=== PATIENT | female | born 1990 | race Caucasian/White ===

== ENCOUNTER 2017-01-22 22:24 | Emergency (ER) ==
[2017-01-22 22:37] VITALS: TEMP 98.4; BMI 45.1
--- NOTE | 2017-01-22 22:56 | ED.PDOC ---
General ED Provider: Dr. JOE DE LEON Chief Complaint: Bite Stated Complaint: Patient comes to the Er with complaints of redness and warmth to the right medial aspct of the right ankle that started one day ago. Denies any drainage. Tired to use compressess. Not sure if she got bit by a spider. Time Seen by Physician: 22:45 Mode of Arrival: Walk-In Information Source: Patient Exam Limitations: No limitations Primary Care Provider: SHENG DUMONT Nursing and Triage Documentation Reviewed and Agree: Yes Skin Complaint Exam - Skin/Soft Tissue Complaint/Exam Onset/Duration: 2 days Symptoms Are: Still present Timing: Constant Initial Severity: Moderate Current Severity: Moderate Location: Right medial aspect of the right knee. Character: Reports: Swelling, Raised, Painful Aggravating: Reports: None Alleviating: Reports: None Associated Signs and Symptoms: Reports: Tenderness Related History: Reports: Insect bite/sting (supects but not sure. ). Denies: Similar episode, Recent trauma, Foreign body, Recent Med change, Prior MRSA/VRE , Recent inpatient Related Surgical History: Reports: None Recent Exposure to Others w/Similar Symptoms: No Skin Findings: Present: Fluctuant mass (measuring 3 cm with raise area. not able to express any puss with needle. ), Skin lesion Joint Tenderness Present: No Differential Diagnoses: Abscess Review of Systems - Review Of Systems Constitutional: Reports: No symptoms Eyes: Reports: No symptoms Ears, Nose, Mouth, Throat: Reports: No symptoms Respiratory: Reports: No symptoms Cardiac: Reports: No symptoms GI: Reports: No symptoms : Reports: No symptoms Musculoskeletal: Reports: No symptoms Skin: Reports: Lesions (right ankle.) Neurological: Reports: No symptoms Endocrine: Reports: No symptoms Hematologic/Lymphatic: Reports: No symptoms All Other Systems: Reviewed and Negative Past Medical History - Past Medical History Previously Healthy: Yes Endocrine: Reports: None Cardiovascular: Reports: None Respiratory: Reports: Asthma Hematological: Reports: None Gastrointestinal: Reports: None Genitourinary: Reports: None Neuro/Psych: Reports: Anxiety, Depression Musculoskeletal: Reports: None Cancer: Reports: None Last Menstrual Period: DEC 31 2016 - Surgical History General Surgical History: Reports: , Unknown - Family History Family History: Reports: Unknown - Social History Smoking Status: Current every day smoker, Light tobacco smoker Hx Substance Use: No Alcohol Screening: Occasionally - Immunizations Tetanus Shot up to Date: Yes Physical Exam - Physical Exam Appearance: Ill-appearing, Obese Ill-appearing: Mild Pain Distress: Moderate Eyes: Conjunctiva clear Neck: Supple Respiratory: Airway patent, Breath sounds clear, Breath sounds equal, Respirations nonlabored Cardiovascular: RRR, Pulses normal, No rub, No murmur GI/: Soft, Nontender, No masses, Bowel sounds normal, No Organomegaly Musculoskeletal: Normal strength, ROM intact, No edema, No calf tenderness Skin: Warm, Dry Neurological: Sensation intact, Motor intact, Alert, Oriented Psychiatric: Anxious Procedures - Incision and Drainage Site: Right medial aspect of Ankle Instrument Used: Needle Lidocaine Used: No Type of Drainage: Present: None Irrigated: No Progress: Tolerated well Critical Care Note - Critical Care Note Total Time (mins): 0 Course - Course Orders, Labs, Meds: Orders Category Date Time Status Ibuprofen [Motrin] MEDS 01/22/17 23:00 Discontinued 800 mg PO ONCE STA Sulfamethoxazole/Trimethoprim [Bactrim Ds 800/160 mg] MEDS 01/22/17 23:00 Discontinued 1 tab PO ONCE STA Medications Discontinued Medications Generic Name Dose Route Start Last Admin Trade Name Freq PRN Reason Stop Dose Admin Ibuprofen 800 mg 01/22/17 23:00 01/22/17 23:10 Motrin PO 01/22/17 23:01 800 mg ONCE STA Administration Trimethoprim/Sulfamethoxazole 1 tab 01/22/17 23:00 01/22/17 23:10 Bactrim Ds 800/160 Mg PO 01/22/17 23:01 1 tab ONCE STA Administration Vital Signs: Temp Pulse Resp BP Pulse Ox 01/22/17 23:35 78 20 142/92 H 97 01/22/17 22:25 98.4 F 92 H 18 142/91 H 98 Departure - Departure Time of Disposition: 22:54 Disposition: HOME SELF-CARE Discharge Problem: Insect bite of right ankle with local reaction Qualifiers: Encounter type: initial encounter Qualifier Code: (S90.561A) Insect bite ( nonvenomous), right ankle, initial encounter Instructions: Insect Bite or Sting (ED) Condition: Fair Pt referred to PMD for follow-up: Yes Additional Instructions: Take Medications as prescribed Follow up with PCP in 3 days Return if worse. Prescriptions: Ibuprofen [Motrin] 600 mg PO Q6H PRN #30 tablet PRN Reason: Analgesia Sulfamethoxazole/Trimethoprim [Bactrim Ds Tablet] 1 each PO BID #20 tablet Tramadol HCl [Ultram] 50 mg PO Q6H PRN #10 tablet PRN Reason: Severe Pain Allergies/Adverse Reactions: Allergies clarithromycin [From Biaxin] Adverse Reaction (Verified 01/25/17 09:25) Anaphylaxis erythromycin base [Erythromycin Base] Adverse Reaction (Verified 01/25/17 09:25) Anaphylaxis Home Medications: Ambulatory Orders Ibuprofen [Motrin] 600 mg PO Q6H PRN #30 tablet 01/22/17 Multivitamin [Multi-Vitamin Daily] 1 each PO DAILY 01/22/17 Sulfamethoxazole/Trimethoprim [Bactrim Ds Tablet] 1 each PO BID #20 tablet 01/22 Tramadol HCl [Ultram] 50 mg PO Q6H PRN #10 tablet 01/22/17 Cephalexin [Keflex] 750 mg PO 1-2XD #14 capsule 01/25/17 Disposition Discussed With: Patient
[2017-01-22] MEDS ORDERED: BACTRIM DS 800/160 MG PO STA (23:00)
[2017-01-22] MEDS ORDERED: MOTRIN PO STA (23:00)
[2017-01-22 23:42] VITALS: BP 142/92
== END 2017-01-22 23:40 | disposition home or self-care (01) ==
LOC: ED 22:24
DX: S90.561A Insect bite (nonvenomous), right ankle, initial encounter (principal); W57.XXXA Bitten or stung by nonvenomous insect and other nonvenomous arthropods, initial encounter; F17.210 Nicotine dependence, cigarettes, uncomplicated
CPT/HCPCS: 99282

== ENCOUNTER 2017-01-25 09:19 | Emergency (ER) ==
[2017-01-25 09:25] VITALS: BP 142/92; TEMP 96.8; BMI 45.1
--- NOTE | 2017-01-25 09:45 | ED.PDOC ---
General ED Provider: Dr. JESSICA DIETRICH Chief Complaint: Bite Stated Complaint: Bite on Left ankle painful Time Seen by Physician: 09:35 Mode of Arrival: Walk-In Information Source: Patient Exam Limitations: No limitations Primary Care Provider: SHENG DUMONT Nursing and Triage Documentation Reviewed and Agree: Yes Review of Systems - Review Of Systems Constitutional: Reports: No symptoms Eyes: Reports: No symptoms Skin: Reports: Other (Left ankle bite area increasing redness) All Other Systems: Reviewed and Negative Past Medical History - Past Medical History Previously Healthy: Yes Endocrine: Reports: None Cardiovascular: Reports: None Respiratory: Reports: Asthma Hematological: Reports: None Gastrointestinal: Reports: None Genitourinary: Reports: None Neuro/Psych: Reports: Anxiety, Depression Musculoskeletal: Reports: None Cancer: Reports: None Last Menstrual Period: 12/31/16 - Surgical History General Surgical History: Reports: , Unknown - Family History Family History: Reports: Unknown - Social History Smoking Status: Current every day smoker Hx Substance Use: No Alcohol Screening: None Physical Exam - Physical Exam Appearance: Well-appearing Respiratory: Airway patent, Respirations nonlabored Skin: Warm, Dry, Normal color (Except for L ankle erythema at site of probable spider bite) Critical Care Note - Critical Care Note Total Time (mins): 5 Course - Course Vital Signs: Temp Pulse Resp BP Pulse Ox 01/25/17 09:23 96.8 F L 117 H 16 142/92 H 96 Departure - Departure Time of Disposition: 09:43 Disposition: HOME SELF-CARE Discharge Problem: Spider bite Qualifiers: Encounter type: sequela Injury intent: accidental or unintentional Qualifier Code: (T63.301S) Toxic effect of unspecified spider venom, accidental ( unintentional), sequela Instructions: Insect Bite or Sting (ED) Condition: Good Pt referred to PMD for follow-up: Yes (Follow up as planned) Additional Instructions: Add antibiotic as prescribed; keep follow up appointment as planned on Saturday. Prescriptions: Cephalexin [Keflex] 750 mg PO 1-2XD #14 capsule Allergies/Adverse Reactions: Allergies clarithromycin [From Biaxin] Adverse Reaction (Verified 01/25/17 09:25) Anaphylaxis erythromycin base [Erythromycin Base] Adverse Reaction (Verified 01/25/17 09:25) Anaphylaxis Home Medications: Ambulatory Orders Ibuprofen [Motrin] 600 mg PO Q6H PRN #30 tablet 01/22/17 Multivitamin [Multi-Vitamin Daily] 1 each PO DAILY 01/22/17 Sulfamethoxazole/Trimethoprim [Bactrim Ds Tablet] 1 each PO BID #20 tablet 01/22 Tramadol HCl [Ultram] 50 mg PO Q6H PRN #10 tablet 01/22/17 Cephalexin [Keflex] 750 mg PO 1-2XD #14 capsule 01/25/17
== END 2017-01-25 09:57 | disposition home or self-care (01) ==
LOC: ED 09:19
DX: T63.301S Toxic effect of unspecified spider venom, accidental (unintentional), sequela (principal); F17.210 Nicotine dependence, cigarettes, uncomplicated
CPT/HCPCS: 99282

== ENCOUNTER 2017-04-22 10:41 | Outpatient (CLI) ==
[2017-04-22 10:59] LABS: URINE PREGNANCY INTERNAL QC INTERNAL QC VALID
== END 2017-04-22 10:42 | disposition home or self-care (01) ==
LOC: LAB 10:41
PROVIDERS: ATTEND Internal Medicine Endocrinology, Diabetes & Metabolism
DX: R51 Headache (principal); L68.0 Hirsutism; N92.6 Irregular menstruation, unspecified; R63.5 Abnormal weight gain
CPT/HCPCS: 81025

== ENCOUNTER 2017-04-23 07:59 | Outpatient (CLI) ==
[2017-04-23 09:18] LABS: ALBUMIN 3.6 g/dL (3.4-5.0); ALBUMIN/GLOBULIN RATIO 1.13; ANION GAP 13.4; BILIRUBIN,TOTAL 0.26 mg/dL (0.00-1.20); BUN/CREATININE RATIO 14.08; CALCIUM 9.5 mg/dL (8.2-10.2); CREATININE 0.71 mg/dL (0.60-1.30); POTASSIUM 4.4 mmol/L (3.5-5.10); TOTAL PROTEIN 6.8 g/dL (6.4-8.2)
[2017-04-24 06:10] LABS: PROLACTIN 5.7 ng/mL (4.8-23.3); TESTOSTERONE 48 ng/dL (8-48)
[2017-04-24 07:12] LABS: ESTRADIOL 56.7 pg/mL (.); FOLLICLE STIMULATING HORMONE 3.7 mIU/mL (.); LUTEINIZING HORMONE 8.3 mIU/mL (.)
[2017-04-26 09:26] LABS: FREE TESTOSTERONE 0.8 pg/mL (0.0-4.2); INSULIN-LIKE GROWTH FACTOR 1 240 ng/mL (93-342)
== END 2017-04-23 08:00 | disposition home or self-care (01) ==
LOC: LAB 07:59
PROVIDERS: ATTEND Internal Medicine Endocrinology, Diabetes & Metabolism
DX: R51 Headache (principal); L68.0 Hirsutism; N92.6 Irregular menstruation, unspecified; R63.5 Abnormal weight gain
CPT/HCPCS: 36415; 80053; 82306; 82533; 82607; 82626; 82670; 83001; 83002; 84146; 84305; 84402; 84403; 84439; 84443

== ENCOUNTER 2017-05-17 11:39 | Outpatient (CLI) ==
[2017-05-17 12:42] LABS: ALBUMIN 3.7 g/dL (3.4-5.0); ALBUMIN/GLOBULIN RATIO 1.06; ANION GAP 13.5; BILIRUBIN,TOTAL 0.28 mg/dL (0.00-1.20); BUN/CREATININE RATIO 16.45; CALCIUM 9.5 mg/dL (8.2-10.2); CREATININE 0.79 mg/dL (0.60-1.30); POTASSIUM 4.5 mmol/L (3.5-5.10); TOTAL PROTEIN 7.2 g/dL (6.4-8.2)
== END 2017-05-17 11:40 | disposition home or self-care (01) ==
LOC: LAB 11:39
PROVIDERS: ATTEND Internal Medicine Endocrinology, Diabetes & Metabolism
DX: R51 Headache (principal); L68.0 Hirsutism; N92.6 Irregular menstruation, unspecified; R63.5 Abnormal weight gain
CPT/HCPCS: 36415; 80053

== ENCOUNTER 2017-07-25 11:42 | Outpatient (CLI) ==
[2017-07-25 12:41] LABS: ALBUMIN 3.3 g/dL (3.4-5.0); ALBUMIN/GLOBULIN RATIO 0.92; ANION GAP 13.7; BILIRUBIN,TOTAL 0.21 mg/dL (0.00-1.20); BUN/CREATININE RATIO 10.25; CALCIUM 9.4 mg/dL (8.2-10.2); CREATININE 0.78 mg/dL (0.60-1.30); POTASSIUM 3.7 mmol/L (3.5-5.10); TOTAL PROTEIN 6.9 g/dL (6.4-8.2)
== END 2017-07-25 11:43 | disposition home or self-care (01) ==
LOC: LAB 11:42
PROVIDERS: ATTEND Internal Medicine Endocrinology, Diabetes & Metabolism
DX: R51 Headache (principal); L68.0 Hirsutism; N92.6 Irregular menstruation, unspecified; R63.5 Abnormal weight gain
CPT/HCPCS: 36415; 80053; 84439; 84443

== ENCOUNTER 2017-10-01 09:43 | Emergency (ER) ==
[2017-10-01 09:51] VITALS: BP 142/88; TEMP 97.9; BMI 45.3
[2017-10-01 10:16] LABS: BILIRUBIN,URINE Negative (NEGATIVE); KETONES,URINE 3+ (NEGATIVE); LEUKOCYTE ESTERASE ,URINE 1+ (NEGATIVE); NITRITE,URINE Negative (NEGATIVE); PROTEIN,URINE Negative (NEGATIVE); URINE, BLOOD 2+ (NEGATIVE)
[2017-10-01 10:20] LABS: ADD URINE MICROSCOPIC YES
--- NOTE | 2017-10-01 10:29 | ED.PDOC ---
General ED Provider: Dr. 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 [ End ]97.9 86 20 98% 142/88 04/27. asthma depr anx uti csx1. lmp . presently taking augmentin and flagyl. [ End ] Time Seen by Physician: 10:27 Mode of Arrival: Walk-In Information Source: Patient Exam Limitations: No limitations Primary Care Provider: SHENG DUMONT Nursing and Triage Documentation Reviewed and Agree: No Review of Systems - Review Of Systems Constitutional: Reports: Malaise Eyes: Reports: No symptoms Ears, Nose, Mouth, Throat: Reports: No symptoms Respiratory: Reports: No symptoms Cardiac: Reports: No symptoms GI: Reports: Abdominal pain : Reports: Burning, Dysuria, Frequency, Hematuria, Pain, Urgency, Other ( ) Musculoskeletal: Reports: No symptoms Skin: Reports: No symptoms Neurological: Reports: No symptoms Endocrine: Reports: No symptoms Hematologic/Lymphatic: Reports: No symptoms All Other Systems: Other Past Medical History - Past Medical History Previously Healthy: Yes Endocrine: Reports: None Cardiovascular: Reports: None Respiratory: Reports: Asthma Hematological: Reports: None Gastrointestinal: Reports: None Genitourinary: Reports: UTI Neuro/Psych: Reports: Anxiety, Depression Musculoskeletal: Reports: None Cancer: Reports: None Last Menstrual Period: aug 12, 2017 - Surgical History General Surgical History: Reports: (x1), Unknown - Family History Family History: Reports: Unknown - Social History Smoking Status: Current every day smoker, Light tobacco smoker Hx Substance Use: No Alcohol Screening: None Physical Exam - Physical Exam Appearance: Well-appearing, Obese Pain Distress: Mild Eyes: YVONNE, EOMI, Conjunctiva clear ENT: Ears normal, Nose normal, Oropharynx normal Neck: Supple Respiratory: Airway patent, Breath sounds clear, Breath sounds equal, Respirations nonlabored Cardiovascular: RRR, Pulses normal, No rub, No murmur GI/: Soft, No masses, Bowel sounds normal, No Organomegaly, Tender Musculoskeletal: Normal strength, ROM intact, No edema, No calf tenderness Skin: Warm, Dry, Normal color Neurological: Sensation intact, Motor intact, Reflexes intact, Cranial nerves intact, Alert, Oriented Psychiatric: Affect appropriate, Mood appropriate Interpretation - Radiology Interpretation Radiology Interpretation By: Radiologist Radiology Results: Positive Exam Interpreted: Other ([id number] 6 days possible small subchorionic bleed single live iup) Critical Care Note - Critical Care Note Total Time (mins): 0 Course - Course Orders, Labs, Meds: Lab Review 10/01/17 10/01/17 10:05 10:34 Urine Color Yellow Urine Clarity Clear Urine pH 6.0 Ur Specific [place] 1.020 Urine Protein Negative Urine Glucose (UA) Negative Urine Ketones 3+ Urine Blood 2+ Urine Nitrite Negative Urine Bilirubin Negative Urine Urobilinogen 0.2 Ur Leukocyte Esterase 1+ Urine Microscopic RBC 5-10 Urine Microscopic WBC 0-2 Ur Squamous Epith Cells 5-10 Urine Test Positive Orders Category Date Time Status HCG,QUANTITATIVE Stat LAB 10/01/17 10:25 Ordered URINALYSIS C & S IF INDICATED Stat LAB 10/01/17 10:05 Completed URINE CULTURE Stat LAB 10/01/17 10:40 Ordered URINE Stat LAB 10/01/17 10:34 Completed ULTRASOUND OB/TV [U/S OB/TV] Stat RADS 10/01/17 10:36 Completed Vital Signs: Temp Pulse Resp BP Pulse Ox 10/01/17 09:43 97.9 F 86 20 142/88 H 98 Departure - Departure Time of Disposition: 12:19 Disposition: HOME SELF-CARE Discharge Problem: Bleeding from vagina UTI (urinary tract infection) Qualifiers: Urinary tract infection type: acute cystitis Hematuria presence: with hematuria Qualified Code(s): N30.01 - Acute cystitis with hematuria UTI (urinary tract infection) during Qualifiers: Trimester: first trimester Qualified Code(s): O23.41 - Unspecified infection of urinary tract in , first trimester Instructions: How to Stop Smoking (ED), Urinary Tract Infection in Women (ED), Urinary Tract Infection in (ED) Condition: Good Pt referred to PMD for follow-up: Yes Additional Instructions: increase fluids urine should be almost colorless call OB about urine culture(done in ER today) NOTE no change in medication discuss antibiotics with [employer] TUTOR Tylenol only for pain\continue antibiotics until culture results Allergies/Adverse Reactions: Allergies clarithromycin [From Biaxin] Adverse Reaction (Verified 10/01/17 09:53) Anaphylaxis erythromycin base [Erythromycin Base] Adverse Reaction (Verified 10/01/17 09:53) Anaphylaxis Home Medications: Ambulatory Orders Amoxicillin/Potassium Clav [Augmentin 875-125 mg Tab] 1 tab PO Q12HR 10/01/17 Metronidazole [Flagyl] 500 mg PO BID 10/01/17
[2017-10-01 10:42] LABS: URINE PREGNANCY INTERNAL QC INTERNAL QC VALID
--- NOTE | 2017-10-01 11:33 | US ---
EXAM: OB ultrasound HISTORY: , cramping and pain, urinary tract infection FINDINGS: OB ultrasound transvaginal. Transvaginal approach imaging was performed for improved resol ution and anatomic definition. Single live intrauterine gestation. Heart rate 122 beats per minute. Gestational and yolk sacs are within normal limits. Small hypoechoic region in the sub chorionic space measuring 0.5 x 1.0 x 0.3 cm suggesting a small sage bchorionic bleed. The myometrium and the right ovary appeared normal. Left ovary is not seen. No ascites. Kiln-rump length of 0.3 cm consistent with 5 weeks, 6 days gestation. Estimated date of delivery 05/28/2018. IMPRESSION: 1. Live intrauterine gestation. 2. Small subchorionic hemorrhage.
== END 2017-10-01 12:35 | disposition home or self-care (01) ==
LOC: ED 09:43
DX: N30.01 Acute cystitis with hematuria (principal); O23.41 Unspecified infection of urinary tract in pregnancy, first trimester; F17.210 Nicotine dependence, cigarettes, uncomplicated
CPT/HCPCS: 36415; 81001; 81025; 84702; 87086; 99283

== ENCOUNTER 2018-01-19 17:22 | Emergency (ER) ==
--- NOTE | 2018-01-19 17:27 | ED.PDOC ---
General ED Provider: Dr. SHENG DUMONT-ER Chief Complaint: Earache Stated Complaint: my sinuses hurt Time Seen by Physician: 17:25 Mode of Arrival: Walk-In Information Source: Patient Primary Care Provider: SHENG DUMONT Nursing and Triage Documentation Reviewed and Agree: Yes Reviewed sepsis parameters & appropriate labs ordered?: Yes System Inflammatory Response Syndrome: Not Applicable Sepsis Protocol: For patient's 13 years and over: Temp is 96.8 and below OR 101 and greater Pulse >90 BPM Resp >20/minute Acutely Altered Mental Status Are patient's symptoms suggestive of a new infection, such as: -Pneumonia -Skin, Soft Tissue -Endocarditis -UTI -Bone, Joint Infection -Implantable Device -Acute Abdominal Infection -Wound Infection -Meningitis -Blood Stream Catheter Infection -Unknown Respiratory Complaint Exam - Respiratory Complaint/Exam Onset/Duration: 3 days Symptoms Are: Still present Timing: Constant Initial Severity: Mild Current Severity: Mild Character: Reports: Non-productive cough Aggravating: Reports: URI Alleviating: Reports: None Associated Signs and Symptoms: Reports: URI, Nasal congestion, Sinus discomfort , Sore throat. Denies: Rapid breathing, Dyspnea, Fever, Chills, Chest pain, Pleuritic chest pain, Wheezing, Hemoptysis, Dizziness, Calf pain, Calf swelling , Edema, Hoarseness, Vomiting, Weight loss, Decreased oral intake, Increased thirst, Increased appetite, Increased urination Related History: Reports: Similar episode History of Healthcare-Acquired Pneumonia: No Related Surgical History: Reports: None Home Oxygen Use: No Recent Stress Test: No Recent Echo/LV Function: No Current Antibiotic Use: No Current Asthma Medication Use: No Respiratory Distress: None Inadequate Respiratory Effort: No Dysphagia Present: No Stridor Present: No JVD Present: No Accessory Muscle Use: No Retractions: Not Present Diminished Breath Sounds: No Sinus Tenderness: None Grunting Respirations: No Kussmaul Respirations: No Differential Diagnoses: Sinusitis Review of Systems - Review Of Systems Constitutional: Reports: No symptoms Eyes: Reports: No symptoms Ears, Nose, Mouth, Throat: Reports: Nose discharge Respiratory: Reports: No symptoms Cardiac: Reports: No symptoms GI: Reports: No symptoms : Reports: No symptoms Musculoskeletal: Reports: No symptoms Skin: Reports: No symptoms Neurological: Reports: No symptoms Endocrine: Reports: No symptoms Hematologic/Lymphatic: Reports: No symptoms All Other Systems: Reviewed and Negative Past Medical History - Past Medical History Previously Healthy: Yes Endocrine: Reports: None Cardiovascular: Reports: None Respiratory: Reports: Asthma Hematological: Reports: None Gastrointestinal: Reports: None Genitourinary: Reports: UTI Neuro/Psych: Reports: Anxiety, Depression Musculoskeletal: Reports: None Cancer: Reports: None - Surgical History General Surgical History: Reports: (x1), Unknown - Family History Family History: Reports: Unknown - Social History Smoking Status: Current every day smoker, Light tobacco smoker Hx Substance Use: No Alcohol Screening: None Physical Exam - Physical Exam Appearance: Well-appearing, No pain distress, Well-nourished Eyes: YVONNE, EOMI, Conjunctiva clear ENT: Rhinorrhea Neck: Supple Respiratory: Airway patent, Breath sounds clear, Breath sounds equal, Respirations nonlabored Cardiovascular: RRR, Pulses normal, No rub, No murmur GI/: Soft, Nontender, No masses, Bowel sounds normal, No Organomegaly Musculoskeletal: Normal strength, ROM intact, No edema, No calf tenderness Skin: Warm, Dry, Normal color Neurological: Sensation intact, Motor intact, Reflexes intact, Cranial nerves intact, Alert, Oriented Psychiatric: Affect appropriate, Mood appropriate Critical Care Note - Critical Care Note Total Time (mins): 0 Departure - Departure Time of Disposition: 17:27 Disposition: HOME SELF-CARE Discharge Problem: Sinusitis Qualifiers: Sinusitis location: unspecified location Chronicity: acute Recurrence: non- recurrent Qualified Code(s): J01.90 - Acute sinusitis, unspecified Instructions: Sinusitis (ED) Condition: Good Pt referred to PMD for follow-up: No IPMP verified?: No Additional Instructions: amoxil 250mg tid x 10 days--tylenol for pain--f/u with ob Allergies/Adverse Reactions: Allergies clarithromycin [From Biaxin] Adverse Reaction (Verified 10/01/17 09:53) Anaphylaxis erythromycin base [Erythromycin Base] Adverse Reaction (Verified 10/01/17 09:53) Anaphylaxis Home Medications: Ambulatory Orders Amoxicillin/Potassium Clav [Augmentin 875-125 mg Tab] 1 tab PO Q12HR 10/01/17 Metronidazole [Flagyl] 500 mg PO BID 10/01/17 Disposition Discussed With: Patient
[2018-01-19 18:01] VITALS: BP 158/93; TEMP 98.3; BMI 46.5
== END 2018-01-19 17:40 | disposition home or self-care (01) ==
LOC: ED 17:22
DX: J01.90 Acute sinusitis, unspecified (principal); F17.210 Nicotine dependence, cigarettes, uncomplicated
CPT/HCPCS: 99282

== ENCOUNTER 2018-09-01 11:33 | Emergency (ER) | payer OTHER ==
[2018-09-01 11:43] VITALS: BP 127/86; TEMP 96.8; BMI 47.6
[2018-09-01] MEDS ORDERED: TORADOL IM STA (11:55)
[2018-09-01] MEDS ORDERED: NORCO 10-325 PO STA (11:56)
[2018-09-01 12:58] LABS: URINE PREGNANCY TEST NEGATIVE (NEGATIVE)
--- NOTE | 2018-09-01 13:44 | CT ---
EXAM: CT BRAIN HISTORY: Head pain TECHNIQUE: CT brain without intravenous contrast. 5-mm axial sections with Reformations. COMPARISON: 11/01/2014 FINDINGS: Brain is unremarkable without evidence of hemorrhage or large vessel distribution recent ischemic in farction. There is no suggestion of acute hydrocephalus or subdural fluid collection. No mass or ma ss effect. Cranium has no acute finding. Mastoid processes are aerated. The visualized paranasal sinuses revea l suspected moderate mucosal thickening within the right maxillary sinus. IMPRESSION: 1. No acute intracranial process identified. 2. Chronic paranasal sinusitis.
--- NOTE | 2018-09-01 13:55 | ED.PDOC ---
General ED Provider: Dr. ADA RESENDIZ Chief Complaint: Headache Stated Complaint: headache Time Seen by Physician: 11:40 (seen with KAEL AT ALL TIMES NEGATIVE INJURY) Mode of Arrival: Walk-In Information Source: Patient Exam Limitations: No limitations Primary Care Provider: SHENG DUMONT Nursing and Triage Documentation Reviewed and Agree: Yes Does patient meet sepsis criteria?: No System Inflammatory Response Syndrome: Not Applicable Sepsis Protocol: For patient's 13 years and over: Temp is 96.8 and below OR 101 and greater Pulse >90 BPM Resp >20/minute Acutely Altered Mental Status Are patient's symptoms suggestive of a new infection, such as: -Pneumonia -Skin, Soft Tissue -Endocarditis -UTI -Bone, Joint Infection -Implantable Device -Acute Abdominal Infection -Wound Infection -Meningitis -Blood Stream Catheter Infection -Unknown Neurological Complaint Exam - Headache Complaint/Exam Onset: Gradual Duration: 1 DAY Symptoms Are: Still present Timing: Constant Episodes Lasting: Hours Worst Headache Ever: No Initial Severity: Moderate Current Severity: Mild Location: Diffuse Character: Reports: Dull Aggravating: Reports: None Alleviating: Reports: None Associated Signs and Symptoms: Denies: Dizziness, Seizure, Nausea, Vomiting, Sinus pressure, Fever, Neck pain, Neck stiffness, Decreased LOC, Visual changes Related History: Reports: Similar episode Related Surgical History: Reports: None SAH Risk Factors: Reports: None Meningitis Risk Factors: Reports: None SDH Risk Factors: Reports: None Temporal Arteritis Risk Factors: Reports: None Normal Head CT Within Last 12 Months: No Fundoscopic Exam: Present: Normal Findings Papilledema Present: No Temporal Artery Tenderness: Present: None Sinus Tenderness: Present: None TMJ Tenderness: Present: None Glascow Coma Scale (see protocol): 15 Meningeal Signs Positive: No Pain on Passive Flexion-Positive Kernig's: No ROM Limited In: No Limitiations Focal Weakness: Present: None Focal Sensory Loss: Present: None Gait: Normal Differential Diagnoses: Migraine Review of Systems - Review Of Systems Constitutional: Reports: No symptoms Eyes: Reports: No symptoms Ears, Nose, Mouth, Throat: Reports: No symptoms Respiratory: Reports: No symptoms Cardiac: Reports: No symptoms GI: Reports: No symptoms : Reports: No symptoms Musculoskeletal: Reports: No symptoms Skin: Reports: No symptoms Neurological: Reports: Headache Endocrine: Reports: No symptoms Hematologic/Lymphatic: Reports: No symptoms All Other Systems: Reviewed and Negative Past Medical History - Past Medical History Previously Healthy: Yes Endocrine: Reports: None Cardiovascular: Reports: None Respiratory: Reports: Asthma Hematological: Reports: None Gastrointestinal: Reports: None Genitourinary: Reports: UTI Neuro/Psych: Reports: Anxiety, Depression Musculoskeletal: Reports: None Cancer: Reports: None Last Menstrual Period: 08/28/18 - Surgical History General Surgical History: Reports: (x1), Unknown - Family History Family History: Reports: Unknown - Social History Smoking Status: Current every day smoker, Light tobacco smoker Hx Substance Use: No Alcohol Screening: None - Immunizations Tetanus Shot up to Date: Yes Physical Exam - Physical Exam Appearance: Well-appearing, No pain distress, Well-nourished Eyes: YVONNE, EOMI, Conjunctiva clear ENT: Ears normal, Nose normal, Oropharynx normal Respiratory: Airway patent, Breath sounds clear, Breath sounds equal, Respirations nonlabored Cardiovascular: RRR, Pulses normal, No rub, No murmur GI/: Soft, Nontender, No masses, Bowel sounds normal, No Organomegaly Musculoskeletal: Normal strength, ROM intact, No edema, No calf tenderness Skin: Warm, Dry, Normal color Neurological: Sensation intact, Motor intact, Reflexes intact, Cranial nerves intact, Alert, Oriented Psychiatric: Affect appropriate, Mood appropriate Interpretation - Radiology Interpretation Radiology Interpretation By: Radiologist Radiology Results: No acute changes Critical Care Note - Critical Care Note Total Time (mins): 0 Course - Course Orders, Labs, Meds: Lab Review 09/01/18 12:50 Urine Test Negative Orders Category Date Time Status URINE Stat LAB 09/01/18 12:50 Completed Hydrocodone Bit/Acetaminophen [Baker 10-325] MEDS 09/01/18 11:56 Discontinued 1 tab PO ONCE STA Ketorolac Tromethamine [Toradol] MEDS 09/01/18 11:55 Discontinued 60 mg IM ONCE STA CT HEAD W/O CONTRAST Stat RADS 09/01/18 12:47 Completed Medications Discontinued Medications Generic Name Dose Route Start Last Admin Trade Name Freq PRN Reason Stop Dose Admin Hydrocodone Bitart/Acetaminophen 1 tab 09/01/18 11:56 09/01/18 12:27 Baker 10-325 PO 09/01/18 11:57 Not Given ONCE STA Ketorolac Tromethamine 60 mg 09/01/18 11:55 09/01/18 12:25 Toradol IM 09/01/18 11:56 60 mg ONCE STA Administration Vital Signs: Temp Pulse Resp BP Pulse Ox 09/01/18 11:34 96.8 F L 87 20 127/86 98 Departure - Departure Time of Disposition: 13:55 Disposition: HOME SELF-CARE Discharge Problem: Headache Instructions: Acute Headache (ED), Acute Headache (DC) Condition: Good Pt referred to PMD for follow-up: Yes IPMP verified?: No Additional Instructions: Please call your Family Physician as soon as possible to schedule a follow-up appointment. Allergies/Adverse Reactions: Allergies clarithromycin [From Biaxin] Adverse Reaction (Verified 10/01/17 09:53) Anaphylaxis erythromycin base [Erythromycin Base] Adverse Reaction (Verified 10/01/17 09:53) Anaphylaxis Home Medications: Ambulatory Orders No122/Iron/Folic Acid [ Multi Tablet] 1 tab PO DAILY 01/19/18 Sertraline HCl [Zoloft] 100 mg PO DAILY 09/01/18
== END 2018-09-01 13:58 | disposition home or self-care (01) ==
LOC: ED 11:33
DX: R51 Headache (principal); F17.210 Nicotine dependence, cigarettes, uncomplicated
CPT/HCPCS: 81025; 96372; 99282